=== PATIENT | female | born 1990 | race African-American/Black ===

== ENCOUNTER 2017-02-26 19:18 | Observation (INO) | payer MEDICAID ==
[~2017-02-26 19:18] MED LIST: BACTRIM DS TAB1 EAC2 PO; BACTRIM DS1 TA1 PO; BACTRIM DS1 TAB PO; BACTROBAN22 G1 TOP; BACTROBAN22 GM TP; DELTASONE50 MG PO; FLAGYL250 MG PO; FLEXERIL10 MG PO; HYDROXYZINE HCL50 M1; IBUPROFEN800 MG PO; INDOCIN25 MG PO; IRON1 TAB; KEFLEX500 MG PO; NORCO 5/325 TAB1 TAB PO; NORCO 5/3251 TA2 PO; NYQUIL D COLD295 ML PO; PAIN RELIEVER325 M2 PO; PERCOCET 7.5-31 EACH PO; PRENATAL1 EACH PO; PRENATAL1 TAB; SEROQUEL; SODIUM CHLORIDE10 M1 FL; TYLENOL EXTRA500 MG; TYLENOL325 M2 PO; ZITHROMAX250 M1 PO
[2017-02-26] MEDS ORDERED: LATUDA80 M1 PO (21:04)
== END 2017-02-26 21:50 ==
LOC: LDR 19:18
PROVIDERS: ADMIT Obstetrics & Gynecology Maternal & Fetal Medicine
DX: O99.89 Other specified diseases and conditions complicating pregnancy, childbirth and the puerperium (principal); R10.9 Unspecified abdominal pain; Z3A.00 Weeks of gestation of pregnancy not specified; Z79.899 Other long term (current) drug therapy; Z91.030 Bee allergy status; Z86.14 Personal history of Methicillin resistant Staphylococcus aureus infection; Z87.01 Personal history of pneumonia (recurrent); Z98.890 Other specified postprocedural states